=== PATIENT | male | born 1985 | race Caucasian/White ===

== ENCOUNTER 2020-10-07 19:34 | Emergency (ER) | payer OTHER ==
[2020-10-07] MEDS ORDERED: NAPROSYN500 MG PO (23:09)
[2020-10-10 20:11] LABS: CHLAMYDIA TRACHOMATIS, NAA Negative (Negative); NEISSERIA GONORRHOEAE, NAA Negative (Negative)
== END 2020-10-07 23:16 | disposition home or self-care (01) ==
LOC: ER1 19:34
PROVIDERS: Physician Assistant
DX: N50.812 Left testicular pain (principal); I10 Essential (primary) hypertension; F17.200 Nicotine dependence, unspecified, uncomplicated; Z79.899 Other long term (current) drug therapy
CPT/HCPCS: 76870; 81001; 87086; 99284

== ENCOUNTER 2021-06-12 18:17 | Emergency (ER) | payer OTHER ==
[~2021-06-12 18:17] MED LIST: NAPROSYN500 MG PO
== END 2021-06-12 21:58 | disposition home or self-care (01) ==
LOC: ER1 18:17
DX: S01.01XA Laceration without foreign body of scalp, initial encounter (principal); F17.200 Nicotine dependence, unspecified, uncomplicated; I10 Essential (primary) hypertension; Z23 Encounter for immunization; W22.8XXA Striking against or struck by other objects, initial encounter
CPT/HCPCS: 12002; 70450; 90471; 90714; 99283